=== PATIENT | male | born 1965 | race Caucasian/White ===

== ENCOUNTER 2023-12-15 10:16 | Emergency (ER) | payer BC, SELFPAY ==
[2023-12-15] VITALS (8 sets, daily range): BP systolic 116–151; BP diastolic 62–81; BMI 20.9
[2023-12-15 10:30] LABS: Glucose - Point of Care 126 mg/dl (70-99)
--- NOTE | 2023-12-15 11:17 | ED.CVA ---
History of Present Illness
<PEBBLES Aguirre - Last Filed: 12/15/23 15:15>
General
Chief Complaint: CVA/TIA Symptoms
Source: patient and significant other
Exam Limitations: none
Time Seen by Provider: 12/15/23 10:54
Nursing documentation reviewed up to this point in time: agreed with
Onset of Stroke Symptoms
Onset of symptoms known: No
Time pt last seen normal is known: No
Travel History
Have you had any contact with someone who has COVID-19?: No
Do you have any symptoms of coronavirus? Fever > 100 degrees, chills, cough, shortness of breath, sore throat, loss of taste or smell, muscle aches, or headache?: No
History of Present Illness
History of Present Illness:
Patient is a 58-year-old male who was brought by significant other. Patient is a very poor historian reports he feels like he' has monkeys in his head.' He describes a sensation as feeling like there is' waves going in and out of my head,' he
denies any actual headache. Symptoms started yesterday. He feels achy and does not feel well. He denies any fever or chills.
He is a daily drinker and does drink normally with scan. Drank beer and whiskey this morning. He denies a sensation that the room is spinning. He denies any trauma. He is on blood thinners.
Triage note documents patient has CVA/TIA symptoms. Patient denies any difficulty with speech denies any upper or lower extremity numbness /tingling weakness no history of CVA TIA symptoms
Past History
<PEBBLES Aguirre - Last Filed: 12/15/23 15:15>
Past History
ED Past Medical History: None
ED Past Surgical History: Orthopedic
Social History
Tobacco: Smoker
Alcohol: Daily (beer)
Personal:
Living: with family
Employment: Employed ([employer])
Review of Systems
<PEBBLES Aguirre - Last Filed: 12/15/23 15:15>
Review of Systems
Allergies reviewed?: Yes
All Other Systems: ROS reviewed and negative except as documented in HPI and ROS
Constitutional: Reports no symptoms; Denies fever
EENT: Reports no symptoms
Respiratory: Reports no symptoms
Cardiac: Reports no symptoms
ABD/GI: Reports no symptoms
: Reports no symptoms
Musculoskeletal: Reports no symptoms
Skin: Reports no symptoms
Neurological: Reports other ('head feels funny ')
Hematologic/Lymphatic: Reports no symptoms
Psychiatric: Reports no symptoms
Phy Exam
<PEBBLES Aguirre - Last Filed: 12/15/23 15:15>
General Physical Exam
General Presentation: no apparent distress
General age: appears stated age
General Skin: warm and dry
General Habitus: normal
General Mental: alert
General Hydration: appears well hydrated
Eye Exam
Eye Exam: PERRL and EOMI
Eye Exam General: PERRL: bilateral and EOM intact: bilateral
Pupil Exam: Bilateral: round and reactive
Cardiovascular Exam
Cardiovascular Exam: regular rate/rhythm, no murmur and normal peripheral pulses
Pulmonary Exam
Pulmonary Exam: lungs clear and no respiratory distress
Neurological Exam
Neurological Exam: alert, oriented x3, no motor deficits, normal reflexs and speech normal
Casandra Coma Scale
Eye Opening: Spontaneous
Verbal Response: Oriented
Motor Response: Obeys Commands
GCS Total Score: 15
Cerebellar
Cerebellar Function: normal finger to nose and other (Steady gait)
Musculoskeletal Exam
Musculoskeletal Exam: full ROM
Skin Exam
Skin Exam: normal color and warm/dry
Psychiatric Exam
Psychiatric Exam: normal mood/affect
Course
<PEBBLES Aguirre - Last Filed: 12/15/23 15:15>
Orders/Labs/Results
Orders:
Orders
12/15/23 11:17
CT Head W/o Iv Contrast Urgent
Comment:
Reason For Exam: headache
IV Insert/Care/Rem.- Treatment PRN
12/15/23 11:21
COVID-19 Antigen Urgent
Source: Nasal Swab
Complete Blood Count/With Diff Urgent
Comprehensive Metabolic Panel Urgent
Influenza A+B Rapid Molecular Urgent
AUBREE Source: Nasal Swab
Specimen Description:
12/15/23 12:42
Chest [CR Chest - 2 Views ] Urgent
Comment:
Reason For Exam: fatigue
12/15/23 12:56
Thiamine Injection 500 mg 0.9% Sodium Chloride 250 ml [Nss] 250 ml IV NOW
12/15/23 14:48
Ketorolac [Toradol] 15 mg IV NOW STA
Abnormal Lab Results
12/15/23 12/15/23
10:29 11:21
RBC 4.56 L 10^6/uL
(4.70-6.10)
MCV 97.8 H fL
(80.0-94.0)
MCH 34.0 H pg
(27.0-31.0)
Absolute Monos (auto) 0.7 H 10^3/uL
(0.1-0.6)
Monocytes % 9.7 H %
(1.7-9.3)
Chloride 96 L mmol/L
(98-107)
BUN 5 L mg/dl
(9-20)
Creatinine 0.5 L mg/dL
(0.7-1.3)
Glucose 130 H mg/dl
(70-99)
AST 245 H U/L
(17-59)
Alkaline Phosphatase 133 H U/L
(38-126)
POC Glucose 126 H mg/dl
(70-99)
12/15/23 11:21
12/15/23 11:21
Vital Signs
Initial and Last Documented VS:
Initial Vital Signs
Temp Pulse Resp BP Pulse Ox
97.6 F 70 20 143/81 96
12/15/23 10:21 12/15/23 10:21 12/15/23 10:21 12/15/23 10:21 12/15/23 10:21
Last Documented Vital Signs
Temp Pulse Resp BP Pulse Ox
97.6 F 67 21 116/68 89
12/15/23 10:21 12/15/23 12:00 12/15/23 12:00 12/15/23 12:00 12/15/23 12:00
Animal Care Supervisor consulted with Physician
Animal Care Supervisor consulted with physician?: Yes
Name of Physician Consulted: Andreina
<Sam Hdz, DO - Last Filed: 12/15/23 12:41>
Orders/Labs/Results
Orders:
Orders
12/15/23 11:17
CT Head W/o Iv Contrast Urgent
Comment:
Reason For Exam: headache
IV Insert/Care/Rem.- Treatment PRN
12/15/23 11:21
COVID-19 Antigen Urgent
Source: Nasal Swab
Complete Blood Count/With Diff Urgent
Comprehensive Metabolic Panel Urgent
Influenza A+B Rapid Molecular Urgent
AUBREE Source: Nasal Swab
Specimen Description:
12/15/23 12:42
Chest [CR Chest - 2 Views ] Urgent
Comment:
Reason For Exam: fatigue
12/15/23 12:56
Thiamine Injection 500 mg 0.9% Sodium Chloride 250 ml [Nss] 250 ml IV NOW
12/15/23 14:48
Ketorolac [Toradol] 15 mg IV NOW STA
Abnormal Lab Results
12/15/23 12/15/23
10:29 11:21
RBC 4.56 L 10^6/uL
(4.70-6.10)
MCV 97.8 H fL
(80.0-94.0)
MCH 34.0 H pg
(27.0-31.0)
Absolute Monos (auto) 0.7 H 10^3/uL
(0.1-0.6)
Monocytes % 9.7 H %
(1.7-9.3)
Chloride 96 L mmol/L
(98-107)
BUN 5 L mg/dl
(9-20)
Creatinine 0.5 L mg/dL
(0.7-1.3)
Glucose 130 H mg/dl
(70-99)
AST 245 H U/L
(17-59)
Alkaline Phosphatase 133 H U/L
(38-126)
POC Glucose 126 H mg/dl
(70-99)
12/15/23 11:21
12/15/23 11:21
Vital Signs
Initial and Last Documented VS:
Initial Vital Signs
Temp Pulse Resp BP Pulse Ox
97.6 F 70 20 143/81 96
12/15/23 10:21 12/15/23 10:21 12/15/23 10:21 12/15/23 10:21 12/15/23 10:21
Last Documented Vital Signs
Temp Pulse Resp BP Pulse Ox
97.6 F 67 21 116/68 89
12/15/23 10:21 12/15/23 12:00 12/15/23 12:00 12/15/23 12:00 12/15/23 12:00
<PEBBLES Aguirre - Last Filed: 12/15/23 15:15>
MDM/Problems Addressed
MDM/Problems Addressed:
Patient is a 50-year-old male who is a daily drinker and smoker presents to the ER with atypical vague complaints. He describes various complaints and sensations as documented in his head but denies any actual headache. He denies any trauma He
arrive stating that he simply did not feel well. He denies any recent illness fever chills. He presents awake alert no acute distress speech is clear he has no neurological abnormal findings on exam. He is able to give history though vague. He
has no nystagmus pupils are equal round reactive he is amatory with steady gait normal [id number]. Patient is afebrile with a normal white count stable hemoglobin. A ST is elevated consistent with alcohol use normal sodium. Patient is
negative for COVID-negative for flu.
CT head negative. Patient was given Toradol after reevaluation as he felt mild pressure in his head possible nonspecific headache with vague description. Patient however is nontoxic. He was evaluated physician he was given some fluids and
thiamine here. He ate a meal drink some fluids on his own. He is nontoxic stable for discharge home. will d/c w/ [facility].
<PEBBLES Aguirre - Last Filed: 12/15/23 15:15>
*Pulse Oximetry
Patient hypoxic: no
*Critical Care Note
Total Time (30-74mins, 75-104mins- exclusive of procedures): Not Applicable
ED Attending Note
<PEBBLES Aguirre - Last Filed: 12/15/23 15:15>
-
Portions of this chart may have been created with voice recognition software.� Occasional wrong word or��sound alike� substitutions may have occurred due to the inherent limitations of voice recognition software.
<Sam Hdz DO - Last Filed: 12/15/23 12:41>
ED Attending Note
Patient seen and examined by attending physician: Yes
I performed the substantive portion of visit, reviewed & personally made and approve the management plan that is documented in note by myself or CAROLE.: Yes
ED Attending Note:
I agree with Iris's note.
Pt with sensation of waves in his head......not a headache. No focal weakness, numbness or tingling. No fever or chills. Pt's states he is not confused but she has noted poor oral intake over the past several weeks. + weight loss (30
pounds). Pt does smoke a pack day and drinks 10 beers a day + whiskey.
General: Sleeping, arousable. Appears chronically ill
Vitals: unremarkable
Head: Atraumatic, howard stained with nicotine/smoke
Eyes: Pupils equal, EOMI
Throat: Airway intact, no exudates
Neck: Trachea midline
Lungs: Clear and equal b/l
Heart: Regular rate, no murmurs
Abd: Soft, Nontender, No pulsatile mass
Neuro: Cranial nerves intact, muscle strength equal bilaterally, cerebellar exam normal
Skin: Warm, dry, no rash
Extremities: pulses equal b/l, no edema
CT head, labs, ivf, thiamine
Discharge Plan
Departure
Patient Disposition: Home (Routine Discharge)
Date of Disposition: 12/15/23
Time of Disposition: 15:13
Patient with high blood pressure during this ER visit?: No
Covid-19: Not Applicable
Discharge Problem:
Dizziness
Instructions: Dizziness, Adult ED
Prescriptions:
No Action
No Current Medications
0
Referrals:
NONE,* [Family Provider] -
[facility] [Provider Group]
Activity Restrictions/Additional Instructions:
Be sure to stay well-hydrated and follow-up with family practice clinic as discussed .return if any worsening of symptoms including worsening dizziness headache vision difficulty difficulty walking or any further concerns
Interventions
Interventions:
*Risk Screen - Suicide Last Done: 12/15/23 11:19
*General Assessment Last Done: 12/15/23 11:11
*Neglect/Abuse Screening Last Done: 12/15/23 13:18
*ED COVID-19 Vaccine History Last Done: 12/15/23 10:21
ED- Pulmonary Assessment Last Done: 12/15/23 11:09
ED- Neurological Assessment Last Done: 12/15/23 11:09
ED- Cardiac Assessment Last Done: 12/15/23 11:20
ED Swallowing Screen Last Done: 12/15/23 13:40
Discharge Date and Time
Print Language: WOLOF
[2023-12-15 11:34] LABS: % Basophils 1.1 % (0-2); % Eosinophils 2.7 % (0-6); % Immature Granulocytes 0.3 % (0-0.5); % Monocytes 9.7 % (1.7-9.3); % Neutrophils 50.2 % (42.2-75.2); Absolute Basophils 0.1 10^3/uL (0-0.2); Absolute Eosinophils 0.2 10^3/uL (0-0.7); Absolute Lymphocytes 2.7 10^3/uL (1.2-3.4); Absolute Monocytes 0.7 10^3/uL (0.1-0.6); Absolute Neutrophils 3.7 10^3/uL (1.4-6.5); Hematocrit 44.6 % (39.0-52.0); Hemoglobin 15.5 g/dL (13.0-18.0); Mean Corp Hgb Conc. 34.8 g/dL (33.0-37.0); Mean Corpuscular Volume 97.8 fL (80.0-94.0); Mean Platelet Volume 9.6 fL (7.4-10.4); Nucleated Red Blood Cells % 0 % (-); Platelet Count 136 10^3/uL (130-400); Red Blood Cell Count 4.56 10^6/uL (4.70-6.10); Red Cell Dist. Width 12.7 % (11.5-14.5); White Blood Cell Count 7.4 10^3/uL (4.8-10.8)
[2023-12-15 11:49] LABS: COVID-19 Antigen Negative (Negative)
[2023-12-15 11:50] LABS: ALT (SGPT) 46 U/L (0-50); AST (SGOT) 245 U/L (17-59); Albumin 4.2 g/dl (3.5-5.0); Alkaline Phosphatase 133 U/L (38-126); Blood Urea Nitrogen 5 mg/dl (9-20); Carbon Dioxide 30 mmol/L (22-30); Chloride 96 mmol/L (98-107); Estimated Creatinine Clearance > 125 ml/min; Glucose 130 mg/dl (70-99); Potassium 3.9 mmol/L (3.5-5.1); Sodium 140 mmol/L (135-145); Total Bilirubin 0.8 mg/dl (0.2-1.3); Total Protein 7.9 g/dl (6.3-8.2); eGFR > 60.00
[2023-12-15] MEDS: THIAMINE INJECTION 255 MG IV (13:32)
[2023-12-15] MEDS: TORADOL 15 MG IV (14:54)
== END 2023-12-15 16:42 | disposition home or self-care (01) ==
LOC: EMR 10:16
PROVIDERS: Nurse Practitioner; EMERGENCY PHYSICIAN Emergency Medicine
DX: R42 Dizziness and giddiness (principal); F17.200 Nicotine dependence, unspecified, uncomplicated; Z11.52 Encounter for screening for COVID-19; Z79.01 Long term (current) use of anticoagulants
CPT/HCPCS: 99285; 96365; 96375; 70450; 71046; 80053; 82962; 85025; 87502; 87811